=== PATIENT | male | born 1970 | race Caucasian/White ===

== ENCOUNTER 2023-04-26 08:03 | Outpatient (CLI) | payer OTHER, SELFPAY | END 2023-04-26 08:04 | disposition home or self-care (01) | PROVIDERS: Visit Provider Family Medicine | DX: E78.2 Mixed hyperlipidemia (principal); N52.9 Male erectile dysfunction, unspecified | CPT/HCPCS: 80053; 80061; 84403 ==

== ENCOUNTER 2023-06-21 06:30 | Outpatient (CLI) | payer OTHER, SELFPAY ==
--- NOTE | 2023-06-21 07:53 | W.ANESCHARGE ---
Anesthesia Charges Start Date/Time Anesthesia Start Date: 06/21/23 Anesthesia Start Time: 07:16 Stop Date/Time Anesthesia Stop Date: 06/21/23 Anesthesia Stop Time: 07:49
--- NOTE | 2023-06-21 08:20 | W.ANESCHARGE ---
Anesthesia Charges Start Date/Time Anesthesia Start Date: 06/21/23 Anesthesia Start Time: 07:16 Stop Date/Time Anesthesia Stop Date: 06/21/23 Anesthesia Stop Time: 07:49
== END 2023-06-21 06:31 | disposition home or self-care (01) ==
LOC: OP CLINIC 06:31
PROVIDERS: Visit Provider Surgery
DX: Z12.11 Encounter for screening for malignant neoplasm of colon (principal); K63.5 Polyp of colon; K64.4 Residual hemorrhoidal skin tags
CPT/HCPCS: 00811; 45385; 88305; J2704